=== PATIENT | female | born 1955 | race Two or more races ===

== ENCOUNTER 2017-01-15 18:51 | Inpatient (IN) | payer MEDICARE, MEDICAID ==
[~2017-01-15 18:51] MED LIST: ACTOS45 MG PO; ALAVERT10 M1 PO; ALEVE220 M2 PO; AMARYL4 M1 PO; AMARYL4 MG PO; AMLODIPINE BESYL5 MG PO; APRESOLINE50 MG PO; ARANESP IV; ASPIR-TRIN325 M2 PO; ASPIRIN EC325 M1 PO; ASPIRIN325 MG PO; AUGMENTIN250 MG/5 M PO; AVANDIA2 MG; AVANDIA4 MG PO; BABY ASPIRIN81 MG PO; CALCITRIOL PO; CALCITRIOL0.5 MC1 PO; CALCIUM CARBON500 M2 PO; CARVEDILOL25 M1 PO; CARVEDILOL25 MG PO; CATAPRES0.1 M1 PO; CATAPRES0.1 MG PO; CATAPRES0.2 M1 PO; CATAPRES0.2 MG PO; CATAPRES0.3 MG PO; CENTRUM SILVER1 EAC3 PO; CENTRUM ULTRA1 EACH PO; CIPRO500 MG PO; CLONIDINE HCL0.1 M2 PO; CLOPIDOGREL75 M1 PO; CLOPIDOGREL75 MG PO; COLACE100 M1 PO; COREG12.5 M1 PO; COREG12.5 MG PO; COREG25 M1 PO; COREG25 MG PO; CORTISPORIN-TC10 M2 OT; DYAZIDE 37.5/251 CAP PO; ESGIC-PLUS TABL1 TAB PO; FERRLECIT62.5 MG/5 IV; FERROUS SULFAT325 MG PO; FLUZONE IM; GLIMEPIRIDE4 MG PO; GLIPIZIDE10 MG PO; GLUCOPHAGE1000 MG PO; GLUCOTROL10 MG PO; H PO; HYDRALAZINE HC100 MG PO; HYDRALAZINE HCL25 M1 PO; HYDRALAZINE HCL50 M1 PO; HYDROCODON-ACE1 EA16 PO; INSULIN; IRON325 M1 PO; ISOSORBIDE MONO30 M1 PO; ISOSORBIDE MONO30 M4 PO; KEFLEX500 M1 PO; KEFLEX500 M4 PO; KEFLEX500 MG PO; LANTUS100 U/ML; LANTUS100 U/ML SC; LANTUS100 UNITS/ SC; LASIX40 MG PO; LEVAQUIN500 MG PO; LEVORA-281 TAB PO; LISINOPRIL20 M1 PO; LISINOPRIL20 MG PO; LISINOPRIL40 MG PO; MAXZIDE1 TAB PO; METOPROLOL TART50 M2 PO; METOPROLOL TART50 MG PO; MILK OF MAGNESIA PO; MIRALAX17 G1 PO; MIRALAX17 G2 PO; MULTI VITAMIN1 EAC1 PO; MULTIVITAMINS1 EAC6 PO; NIFEREX-150 CAP1 CAP PO; NITROGLYCERIN0.4 M2 SL; NITROGLYCERIN0.4 MG SL; NITROSTAT0.4 MG/TAB PO; NORCO 10/3251 TA1 PO; NORCO 5-325 TA1 EACH PO; NORCO 5/325 TAB1 TAB PO; NORVASC10 M1 PO; NORVASC10 M2 PO; NORVASC5 M1 PO; NORVASC5 M2 PO; OMEPRAZOLE20 M3 PO; OS-CAL 500+D31 EAC1 PO; PAIN RELIEF325 M1 PO; PLAVIX75 M1 PO; PLAVIX75 MG PO; PORTIA PO; PRAVACHOL40 M1 PO; PRAVACHOL40 MG PO; PROPRANOLOL HCL80 MG PO; RENVELA800 M1 PO; RENVELA800 MG PO; ROCALTROL0.5 MC2 PO; SENSIPAR30 M1 PO; SENSIPAR30 MG PO; SIMVASTATIN40 MG PO; SYNTHROID50 MC1 PO; TOPROL XL50 MG PO; TYLENOL EXTRA500 M1 PO; TYLENOL325 M1 PO; TYLENOL500 MG PO; VITAMIN D50000 UNIT PO; ZESTRIL40 M2 PO; ZOCOR40 MG PO; [UNRECOGNIZED DRUG - CODE] PO; [UNRECOGNIZED DRUG - OTHER] PO; [UNRECOGNIZED DRUG - OTHER] PR; [UNRECOGNIZED DRUG - REMARK]
[2017-01-16 00:46] LABS: BASO % 0.4 % (0-2); EOS % 1.2 % (0-7); EOSINOPHIL ABSOLUTE COUNT 0.1 tho/cmm (0.0-0.7); HCT-HEMATOCRIT 28.1 % (34.0-49.0); HGB-HEMOGLOBIN 9.4 gm/dl (12.0-15.5); IMMATURE GRANULOCYTES ABSOLUTE 0.04 tho/cmm (0-0.03); IMMATURE GRANULOCYTES PERCENT 0.5 % (0-0.3); LYMPH % 17.1 % (20-45); LYMPH ABSOLUTE COUNT 1.3 tho/cmm (0.8-4.5); MCH (MEAN CORPUSCULAR HGB) 30.6 pg (28.0-32.0); MCHC MEAN CORPUSCULAR HGB CONC 33.5 % (32.0-36.0); MCV (MEAN CELL VOLUME) 91.5 fl (82.0-96.0); MEAN PLATELET VOLUME 10.7 cmc (9.4-12.4); MONO % 5.6 % (0-12); MONOCYTE ABSOLUTE COUNT 0.4 tho/cmm (0.0-1.2); NEUTROPHIL ABSOLUTE COUNT 5.9 tho/cmm (1.6-8.0); NEUTROPHIL-AUTOMATED 5.9 tho/cmm (1.6-8.0); NEUTROPHILS % 75.2 % (40-80); PLATELET COUNT 167 tho/cmm (150-450); RED BLOOD COUNT 3.07 mil/cmm (4.00-5.20); RED CELL DISTRIBUTION WIDTH 14.5 % (12.4-16.4); WHITE BLOOD COUNT 7.8 tho/cmm (4.0-10.0)
[2017-01-16 01:01] LABS: ANION GAP 20 mmol/L (0-20); BLOOD UREA NITROGEN 82 mg/dl (6-24); CARBON DIOXIDE-VENOUS 20 mmol/L (22-32); CHLORIDE 99 mmol/l (96-110); GLUCOSE 305 mg/dL (70-110); PHOSPHOROUS 5.4 mg/dl (2.5-4.9); POTASSIUM 5.6 mmol/L (3.7-5.1); SODIUM 133 mmol/L (135-145); eGFR VALUE FOR BLACK 4 mL/Min
[2017-01-16 06:06] LABS: BASO % 0.5 % (0-2); EOS % 0.8 % (0-7); EOSINOPHIL ABSOLUTE COUNT 0.1 tho/cmm (0.0-0.7); HCT-HEMATOCRIT 29.7 % (34.0-49.0); IMMATURE GRANULOCYTES ABSOLUTE 0.03 tho/cmm (0-0.03); IMMATURE GRANULOCYTES PERCENT 0.5 % (0-0.3); LYMPH % 18.6 % (20-45); LYMPH ABSOLUTE COUNT 1.2 tho/cmm (0.8-4.5); MCH (MEAN CORPUSCULAR HGB) 30.6 pg (28.0-32.0); MCHC MEAN CORPUSCULAR HGB CONC 33.7 % (32.0-36.0); MCV (MEAN CELL VOLUME) 90.8 fl (82.0-96.0); MEAN PLATELET VOLUME 10.4 cmc (9.4-12.4); MONO % 6.1 % (0-12); MONOCYTE ABSOLUTE COUNT 0.4 tho/cmm (0.0-1.2); NEUTROPHIL ABSOLUTE COUNT 4.6 tho/cmm (1.6-8.0); NEUTROPHIL-AUTOMATED 4.6 tho/cmm (1.6-8.0); NEUTROPHILS % 73.5 % (40-80); PLATELET COUNT 158 tho/cmm (150-450); RED BLOOD COUNT 3.27 mil/cmm (4.00-5.20); RED CELL DISTRIBUTION WIDTH 14.3 % (12.4-16.4); WHITE BLOOD COUNT 6.3 tho/cmm (4.0-10.0)
[2017-01-16 06:11] LABS: INR 0.9 INR (0.9-1.1); PROTHROMBIN TIME 10.4 SECONDS (9.0-13.6)
[2017-01-16 06:23] LABS: BLOOD UREA NITROGEN 22 mg/dl (6-24); CALCIUM 7.3 mg/dl (8.5-10.5); CARBON DIOXIDE-VENOUS 24 mmol/L (22-32); CHLORIDE 102 mmol/l (96-110); GLUCOSE 211 mg/dL (70-110); SODIUM 135 mmol/L (135-145)
[2017-01-16 06:36] LABS: ANION GAP 12 mmol/L (0-20); CREATININE 4.75 mg/dl (0.50-1.10); POTASSIUM 3.4 mmol/L (3.7-5.1); eGFR VALUE FOR BLACK 11 mL/Min
[2017-01-17 05:27] LABS: ANION GAP 13 mmol/L (0-20); BLOOD UREA NITROGEN 15 mg/dl (6-24); CALCIUM 7.2 mg/dl (8.5-10.5); CARBON DIOXIDE-VENOUS 25 mmol/L (22-32); CHLORIDE 106 mmol/l (96-110); CREATININE 3.82 mg/dl (0.50-1.10); GLUCOSE 185 mg/dL (70-110); POTASSIUM 3.9 mmol/L (3.7-5.1); SODIUM 140 mmol/L (135-145); eGFR VALUE FOR BLACK 14 mL/Min
== END 2017-01-17 11:00 | DRG 640 ==
LOC: EDMED 18:51 → EMR2 23:47 → PCUA 01-16 00:05
PROVIDERS: Internal Medicine; Internal Medicine Nephrology; Radiology Diagnostic Radiology; ADMIT Hospitalist
PROC: 02HV33Z Insertion of Infusion Device into Superior Vena Cava, Percutaneous Approach (ICD-10-PCS; principal; 2017-01-15)
PROC: 5A1D00Z (ICD-10-PCS; 2017-01-16)
DX: E87.5 Hyperkalemia (principal); N18.6 End stage renal disease; I12.0 Hypertensive chronic kidney disease with stage 5 chronic kidney disease or end stage renal disease; T82.898A Other specified complication of vascular prosthetic devices, implants and grafts, initial encounter; E11.22 Type 2 diabetes mellitus with diabetic chronic kidney disease; E11.65 Type 2 diabetes mellitus with hyperglycemia; I25.10 Atherosclerotic heart disease of native coronary artery without angina pectoris; D63.1 Anemia in chronic kidney disease; E03.9 Hypothyroidism, unspecified; R00.1 Bradycardia, unspecified; E11.319 Type 2 diabetes mellitus with unspecified diabetic retinopathy without macular edema; E11.40 Type 2 diabetes mellitus with diabetic neuropathy, unspecified; Z91.11 Patient's noncompliance with dietary regimen; Z79.82 Long term (current) use of aspirin; Z79.02 Long term (current) use of antithrombotics/antiplatelets; Z79.4 Long term (current) use of insulin; Z79.891 Long term (current) use of opiate analgesic; Z79.899 Other long term (current) drug therapy; Z95.1 Presence of aortocoronary bypass graft; Y84.8 Other medical procedures as the cause of abnormal reaction of the patient, or of later complication, without mention of misadventure at the time of the procedure
CPT/HCPCS: C1750; C1769; J1644; J1815; J2250; J3010; P9047

== ENCOUNTER 2017-01-25 20:16 | Inpatient (IN) | payer MEDICARE, MEDICAID ==
[2017-01-25 21:58] LABS: BASO % 0.3 % (0-2); EOS % 0.9 % (0-7); EOSINOPHIL ABSOLUTE COUNT 0.1 tho/cmm (0.0-0.7); HCT-HEMATOCRIT 28.7 % (34.0-49.0); HGB-HEMOGLOBIN 9.5 gm/dl (12.0-15.5); IMMATURE GRANULOCYTES ABSOLUTE 0.04 tho/cmm (0-0.03); IMMATURE GRANULOCYTES PERCENT 0.4 % (0-0.3); LYMPH % 8.5 % (20-45); LYMPH ABSOLUTE COUNT 0.9 tho/cmm (0.8-4.5); MCH (MEAN CORPUSCULAR HGB) 30.3 pg (28.0-32.0); MCHC MEAN CORPUSCULAR HGB CONC 33.1 % (32.0-36.0); MCV (MEAN CELL VOLUME) 91.4 fl (82.0-96.0); MEAN PLATELET VOLUME 10.4 cmc (9.4-12.4); MONO % 4.4 % (0-12); MONOCYTE ABSOLUTE COUNT 0.5 tho/cmm (0.0-1.2); NEUTROPHILS % 85.5 % (40-80); PLATELET COUNT 203 tho/cmm (150-450); RED BLOOD COUNT 3.14 mil/cmm (4.00-5.20); RED CELL DISTRIBUTION WIDTH 14.7 % (12.4-16.4); WHITE BLOOD COUNT 10.5 tho/cmm (4.0-10.0)
[2017-01-25 22:02] LABS: INR 0.9 INR (0.9-1.1); PROTHROMBIN TIME 10.7 SECONDS (9.0-13.6)
[2017-01-25 22:10] LABS: ANION GAP 17 mmol/L (0-20); BLOOD UREA NITROGEN 26 mg/dl (6-24); CALCIUM 7.6 mg/dl (8.5-10.5); CARBON DIOXIDE-VENOUS 25 mmol/L (22-32); CHLORIDE 97 mmol/l (96-110); CREATININE 5.02 mg/dl (0.50-1.10); GLUCOSE 354 mg/dL (70-110); MAGNESIUM 1.8 mg/dl (1.3-2.6); POTASSIUM 3.6 mmol/L (3.7-5.1); SODIUM 135 mmol/L (135-145); eGFR VALUE FOR BLACK 10 mL/Min
[2017-01-26 04:41] LABS: BASO % 0.5 % (0-2); EOS % 0.9 % (0-7); EOSINOPHIL ABSOLUTE COUNT 0.1 tho/cmm (0.0-0.7); HCT-HEMATOCRIT 26.3 % (34.0-49.0); HGB-HEMOGLOBIN 8.7 gm/dl (12.0-15.5); IMMATURE GRANULOCYTES ABSOLUTE 0.03 tho/cmm (0-0.03); IMMATURE GRANULOCYTES PERCENT 0.4 % (0-0.3); LYMPH % 14.1 % (20-45); LYMPH ABSOLUTE COUNT 1.2 tho/cmm (0.8-4.5); MCH (MEAN CORPUSCULAR HGB) 30.6 pg (28.0-32.0); MCHC MEAN CORPUSCULAR HGB CONC 33.1 % (32.0-36.0); MCV (MEAN CELL VOLUME) 92.6 fl (82.0-96.0); MEAN PLATELET VOLUME 10.4 cmc (9.4-12.4); MONO % 5.5 % (0-12); MONOCYTE ABSOLUTE COUNT 0.5 tho/cmm (0.0-1.2); NEUTROPHIL ABSOLUTE COUNT 6.6 tho/cmm (1.6-8.0); NEUTROPHIL-AUTOMATED 6.6 tho/cmm (1.6-8.0); NEUTROPHILS % 78.6 % (40-80); PLATELET COUNT 181 tho/cmm (150-450); RED BLOOD COUNT 2.84 mil/cmm (4.00-5.20); RED CELL DISTRIBUTION WIDTH 14.8 % (12.4-16.4); WHITE BLOOD COUNT 8.4 tho/cmm (4.0-10.0)
[2017-01-27 06:04] LABS: BASO % 0.3 % (0-2); EOS % 1.9 % (0-7); EOSINOPHIL ABSOLUTE COUNT 0.1 tho/cmm (0.0-0.7); HCT-HEMATOCRIT 27.9 % (34.0-49.0); HGB-HEMOGLOBIN 9.2 gm/dl (12.0-15.5); IMMATURE GRANULOCYTES ABSOLUTE 0.02 tho/cmm (0-0.03); IMMATURE GRANULOCYTES PERCENT 0.3 % (0-0.3); LYMPH % 19.9 % (20-45); LYMPH ABSOLUTE COUNT 1.3 tho/cmm (0.8-4.5); MCH (MEAN CORPUSCULAR HGB) 30.6 pg (28.0-32.0); MCV (MEAN CELL VOLUME) 92.7 fl (82.0-96.0); MEAN PLATELET VOLUME 10.4 cmc (9.4-12.4); MONO % 6.1 % (0-12); MONOCYTE ABSOLUTE COUNT 0.4 tho/cmm (0.0-1.2); NEUTROPHIL ABSOLUTE COUNT 4.8 tho/cmm (1.6-8.0); NEUTROPHIL-AUTOMATED 4.8 tho/cmm (1.6-8.0); NEUTROPHILS % 71.5 % (40-80); PLATELET COUNT 209 tho/cmm (150-450); RED BLOOD COUNT 3.01 mil/cmm (4.00-5.20); RED CELL DISTRIBUTION WIDTH 14.6 % (12.4-16.4); WHITE BLOOD COUNT 6.7 tho/cmm (4.0-10.0)
[2017-01-27 06:19] LABS: ALBUMIN 2.8 g/dl (3.5-5.0); ANION GAP 15 mmol/L (0-20); CALCIUM 7.4 mg/dl (8.5-10.5); CARBON DIOXIDE-VENOUS 27 mmol/L (22-32); CHLORIDE 99 mmol/l (96-110); PHOSPHOROUS 5.3 mg/dl (2.5-4.9); POTASSIUM 4.2 mmol/L (3.7-5.1); SODIUM 137 mmol/L (135-145); eGFR VALUE FOR BLACK 6 mL/Min
[2017-01-27 06:23] LABS: GLUCOSE 152 mg/dL (70-110)
[2017-01-27 06:24] LABS: BLOOD UREA NITROGEN 53 mg/dl (6-24)
[2017-01-27 06:25] LABS: CREATININE 8.25 mg/dl (0.50-1.10)
[2017-01-27 13:39] LABS: PROTHROMBIN TIME 11.1 SECONDS (9.0-13.6)
[2017-01-28 12:28] LABS: BASO % 0.6 % (0-2); EOS % 1.5 % (0-7); EOSINOPHIL ABSOLUTE COUNT 0.1 tho/cmm (0.0-0.7); HCT-HEMATOCRIT 29.7 % (34.0-49.0); HGB-HEMOGLOBIN 9.7 gm/dl (12.0-15.5); IMMATURE GRANULOCYTES ABSOLUTE 0.07 tho/cmm (0-0.03); LYMPH % 18.9 % (20-45); LYMPH ABSOLUTE COUNT 1.3 tho/cmm (0.8-4.5); MCH (MEAN CORPUSCULAR HGB) 30.1 pg (28.0-32.0); MCHC MEAN CORPUSCULAR HGB CONC 32.7 % (32.0-36.0); MCV (MEAN CELL VOLUME) 92.2 fl (82.0-96.0); MEAN PLATELET VOLUME 10.1 cmc (9.4-12.4); MONO % 5.1 % (0-12); MONOCYTE ABSOLUTE COUNT 0.4 tho/cmm (0.0-1.2); NEUTROPHILS % 72.9 % (40-80); PLATELET COUNT 215 tho/cmm (150-450); RED BLOOD COUNT 3.22 mil/cmm (4.00-5.20); RED CELL DISTRIBUTION WIDTH 14.5 % (12.4-16.4); WHITE BLOOD COUNT 6.8 tho/cmm (4.0-10.0)
[2017-01-28 12:44] LABS: ALBUMIN 2.9 g/dl (3.5-5.0); ANION GAP 15 mmol/L (0-20); BLOOD UREA NITROGEN 29 mg/dl (6-24); CALCIUM 8.1 mg/dl (8.5-10.5); CARBON DIOXIDE-VENOUS 26 mmol/L (22-32); CHLORIDE 98 mmol/l (96-110); PHOSPHOROUS 4.4 mg/dl (2.5-4.9); POTASSIUM 4.5 mmol/L (3.7-5.1); SODIUM 134 mmol/L (135-145); eGFR VALUE FOR BLACK 9 mL/Min
[2017-01-28 12:46] LABS: CREATININE 5.54 mg/dl (0.50-1.10); GLUCOSE 295 mg/dL (70-110)
[2017-01-28] MEDS ORDERED: ELIQUIS2.5 M1 PO (15:32)
== END 2017-01-28 16:45 | DRG 314 ==
LOC: EDMED 20:16 → EMR2 01-26 00:21 → CAR1 01-26 01:17
PROVIDERS: Emergency Medicine; Family Medicine; Internal Medicine; ADMIT Hospitalist
PROC: 5A1D60Z (ICD-10-PCS; principal; 2017-01-27)
DX: T82.868A Thrombosis due to vascular prosthetic devices, implants and grafts, initial encounter (principal); N18.6 End stage renal disease; E11.22 Type 2 diabetes mellitus with diabetic chronic kidney disease; I12.0 Hypertensive chronic kidney disease with stage 5 chronic kidney disease or end stage renal disease; D63.1 Anemia in chronic kidney disease; Z99.2 Dependence on renal dialysis; E11.65 Type 2 diabetes mellitus with hyperglycemia; Z79.4 Long term (current) use of insulin; E78.5 Hyperlipidemia, unspecified; I25.10 Atherosclerotic heart disease of native coronary artery without angina pectoris; Z95.1 Presence of aortocoronary bypass graft; Z79.82 Long term (current) use of aspirin; Z79.02 Long term (current) use of antithrombotics/antiplatelets; E89.0 Postprocedural hypothyroidism; E83.39 Other disorders of phosphorus metabolism
CPT/HCPCS: G0257; G0378; J0885; J1170; J1644; J1815; J2405; J7050